=== PATIENT | male | born 1945 | race African-American/Black ===

== ENCOUNTER 2017-03-05 20:06 | Inpatient (IN) | payer MEDICARE, OTHER ==
[2017-03-05] MEDS: ALBUTEROL 0.083% (NEB) 2.5 MG/3 ML AMP HHN (20:43)
[2017-03-05] MEDS: IPRATROPIUM (NEB) 0.5 MG/2.5 ML AMP HHN (20:43)
[2017-03-05 21:19] LABS: ADD MAN DIFF? NO
[2017-03-05 21:21] LABS: WHITE BLOOD COUNT 7.5 10^3/ul (4.8-10.8)
[2017-03-05 21:21] LABS: BASOPHILS % 0.5 % (0.0-2.0); EOSINOPHILS # 0.6 10^3/ul (0.0-0.5); EOSINOPHILS % 8.3 % (0.0-7.0); HEMATOCRIT 47.3 % (42.0-52.0); HEMOGLOBIN 14.5 g/dl (14.0-18.0); LYMPHOCYTES # 1.8 10^3/ul (0.8-2.9); LYMPHOCYTES % 23.5 % (15.0-51.0); MEAN CORPUSCULAR HEMOGLOBIN 28.6 pg (29.0-33.0); MEAN CORPUSCULAR HGB CONC 30.7 g/dl (32.0-37.0); MEAN CORPUSCULAR VOLUME 93.3 fl (82.0-101.0); MEAN PLATELET VOLUME 11.2 fl (7.4-10.4); MONOCYTE # 0.6 10^3/ul (0.3-0.9); MONOCYTES % 7.7 % (0.0-11.0); NEUTROPHIL # 4.5 10^3/ul (1.6-7.5); NEUTROPHILS % 59.6 % (39.0-77.0); PLATELET COUNT 182 10^3/UL (140-415); RED BLOOD COUNT 5.07 10^6/ul (4.70-6.10); RED CELL DISTRIBUTION WIDTH 14.2 % (11.5-14.5)
[2017-03-05 21:41] LABS: INR 1.05; PROTIME 13.8 Sec (11.9-14.9); PT RATIO 1.1
[2017-03-05 21:42] LABS: PARTIAL THROMBOPLASTIN TIME 28.1 Sec (25.0-35.0)
[2017-03-05 21:53] LABS: ALANINE AMINOTRANSFERASE 26 IU/L (13-69); ALBUMIN 3.2 g/dl (3.3-4.9); ALBUMIN/GLOBULIN RATIO 0.86; ALKALINE PHOSPHATASE 121 IU/L (42-121); ANION GAP 12 (8-16); ASPARTATE AMINO TRANSFERASE 24 IU/L (15-46); BILIRUBIN,INDIRECT 0.2 mg/dl (0-1.1); BILIRUBIN,TOTAL 0.2 mg/dl (0.2-1.3); BLOOD UREA NITROGEN 16 mg/dl (7-20); CALCIUM 7.8 mg/dl (8.4-10.2); CARBON DIOXIDE 31 mmol/L (21-31); CHLORIDE 107 mmol/L (97-110); CREATININE 0.79 mg/dl (0.61-1.24); GLUCOSE 75 mg/dl (70-220); POTASSIUM 3.8 mmol/L (3.5-5.1); SODIUM 146 mmol/L (135-144); TOTAL PROTEIN 6.9 g/dl (6.1-8.1)
[2017-03-05 21:53] LABS: LACTIC ACID 1.2 mmol/L (0.5-2.0)
[2017-03-05 22:07] LABS: TROPONIN-I < 0.012 ng/ml (0.00-0.12)
[2017-03-05] MEDS ORDERED: ONDANSETRON 4 MG INJ IV (22:30)
[2017-03-05] MEDS ORDERED: ACETAMINOPHEN 325 MG TAB PO (22:30)
[2017-03-05 22:50] LABS: B-TYPE NATRIURETIC PEPTIDE 178 PG/ML (0-125)
[2017-03-05 22:54] LABS: AADO2 Arterial 119.6 mmHg (7.0-24.0); Allen Test ACCEPTAB; Arterial Blood Gas Oxygen Sat 92.1 mmHG (95.0-100.0); Arterial COHb 0.3 % (0.0-3.0); Arterial Fraction of Oxyhgb 91.5 % (93.0-99.0); Arterial HCO3 30.2 mmol/L (22.0-26.0); Arterial MetHb 0.3 % (0.0-1.5); Arterial Total Hemglobin 15.9 g/dl (12.0-18.0); Arterial pCO2 46.1 mmhg (35-45); MODE NASAL CANNULA; Site Right Radial
[2017-03-05] MEDS: CEFEPIME 2GM/50 ML (PMX) 50 ML IVPB (23:03)
[2017-03-05] MEDS: VANCOMYCIN 1 GM (PMX) 250 ML IVPB (23:04)
[2017-03-06] MEDS ORDERED: LORAZEPAM 2 MG INJ IV
[2017-03-06] MEDS ORDERED: ONDANSETRON 4 MG INJ IV
[2017-03-06] MEDS ORDERED: ACETAMINOPHEN 650 MG SUPP PR
[2017-03-06] MEDS ORDERED: NACL 0.9% 3 ML SYG IV
[2017-03-06] MEDS: SOD CHLORIDE 0.9% 100 ML (00:37)
[2017-03-06] MEDS: IOHEXOL 300MG/ML 150 ML BTL (00:37)
[2017-03-06] MEDS: SOD CHLORIDE 0.9% 1,000 ML IV (01:41)
[2017-03-06] MEDS: ENOXAPARIN 100 MG/ML SYG SC (02:18)
[2017-03-06 02:22] LABS: LACTIC ACID 2.1 mmol/L (0.5-2.0)
[2017-03-06 02:37] LABS: LACTIC ACID 1.2 mmol/L (0.5-2.0)
[2017-03-06] MEDS ORDERED: DEXTROSE 5% 1,000 ML IV (08:00)
[2017-03-06] MEDS ORDERED: FUROSEMIDE 20 MG INJ IV (08:30)
[2017-03-06] MEDS ORDERED: VANCOMYCIN IV PER PHARMACY XX (09:00)
[2017-03-06] MEDS ORDERED: MULTIVITAMINS 30 ML CUP GTB (09:00)
[2017-03-06] MEDS ORDERED: ATROPINE 1% 3.5 GM OPH OINT BOTH EYES (09:00)
[2017-03-06] MEDS ORDERED: MAGNESIUM HYDROXIDE 30ML CUP GTB (09:00)
[2017-03-06] MEDS ORDERED: ALBUMIN HUMAN 25% 100 ML IV (09:00)
[2017-03-06] MEDS ORDERED: LACTOBACILLUS ACIDOPHILUS 100 MG GTB (09:00)
[2017-03-06] MEDS ORDERED: ALBUTEROL/IPRATROPIUM (NEB) 3 ML AMP HHN (09:00)
[2017-03-06] MEDS ORDERED: MINERAL OIL 133 ML ENEMA PR (09:00)
[2017-03-06 09:11] LABS: ADD MAN DIFF? NO
[2017-03-06 09:15] LABS: BASOPHIL # 0.1 10^3/ul (0.0-0.1); BASOPHILS % 0.7 % (0.0-2.0); EOSINOPHILS # 0.5 10^3/ul (0.0-0.5); EOSINOPHILS % 7.4 % (0.0-7.0); HEMATOCRIT 44.7 % (42.0-52.0); HEMOGLOBIN 13.9 g/dl (14.0-18.0); LYMPHOCYTES # 1.6 10^3/ul (0.8-2.9); LYMPHOCYTES % 22.9 % (15.0-51.0); MEAN CORPUSCULAR HEMOGLOBIN 28.8 pg (29.0-33.0); MEAN CORPUSCULAR HGB CONC 31.1 g/dl (32.0-37.0); MEAN CORPUSCULAR VOLUME 92.7 fl (82.0-101.0); MONOCYTE # 0.4 10^3/ul (0.3-0.9); MONOCYTES % 6.4 % (0.0-11.0); NEUTROPHIL # 4.2 10^3/ul (1.6-7.5); NEUTROPHILS % 62.3 % (39.0-77.0); PLATELET COUNT 198 10^3/UL (140-415); RED BLOOD COUNT 4.82 10^6/ul (4.70-6.10); RED CELL DISTRIBUTION WIDTH 14.2 % (11.5-14.5)
[2017-03-06 09:15] LABS: WHITE BLOOD COUNT 6.8 10^3/ul (4.8-10.8)
[2017-03-06 09:40] LABS: CREATINE KINASE 88 IU/L (23-200)
[2017-03-06 09:44] LABS: ADD UMIC YES; UR ASCORBIC ACID 40 mg/dL (NEGATIVE); UR BACTERIA FEW /HPF (NONE SEEN); UR BILIRUBIN (Dip) NEGATIVE (NEGATIVE); UR BLOOD (Dip) NEGATIVE (NEGATIVE); UR CLARITY CLOUDY (CLEAR); UR COLOR AMBER (YELLOW); UR GLUCOSE (Dip) NEGATIVE (NEGATIVE); UR KETONES (Dip) TRACE mg/dL (NEGATIVE); UR LEUKOCYTE ESTERASE (Dip) 3+ Leu/ul (NEGATIVE); UR MUCUS MANY /HPF (NONE SEEN); UR NITRITE (Dip) NEGATIVE (NEGATIVE); UR NONSQUAMOUS EPITHELIAL CELL 1 /HPF (NONE SEEN); UR RBC 101 /HPF (0-5); UR SPECIFIC GRAVITY (Dip) > 1.060 (1.003-1.030); UR TOTAL PROTEIN (Dip) 1+ mg/dl (NEGATIVE); UR UROBILINOGEN (Dip) NEGATIVE (NEGATIVE); UR WBC > 182 /HPF (0-5)
[2017-03-06 09:53] LABS: CK INDEX 0.5
[2017-03-06] MEDS ORDERED: VANCOMYCIN 1.25 GM in SODIUM CHLORIDE 0.45 % 250 ML IVPB (10:00)
[2017-03-06 10:09] LABS: CK-MB 0.47 ng/ml (0.0-2.4); TROPONIN-I < 0.012 ng/ml (0.00-0.12)
[2017-03-06 10:14] LABS: AADO2 Arterial 84.7 mmHg (7.0-24.0); Allen Test ACCEPTAB; Arterial Base Excess 4.3 mmol/L (-3.0-3); Arterial Blood Gas Oxygen Sat 95.2 mmHG (95.0-100.0); Arterial COHb 0.4 % (0.0-3.0); Arterial Fraction of Oxyhgb 94.6 % (93.0-99.0); Arterial HCO3 29.5 mmol/L (22.0-26.0); Arterial MetHb 0.2 % (0.0-1.5); Arterial Total Hemglobin 14.8 g/dl (12.0-18.0); MODE NASAL CANNULA; Site Right Radial
[2017-03-06 10:21] LABS: ALANINE AMINOTRANSFERASE 26 IU/L (13-69); ALBUMIN 3.3 g/dl (3.3-4.9); ALBUMIN/GLOBULIN RATIO 0.89; ALKALINE PHOSPHATASE 129 IU/L (42-121); ANION GAP 13 (8-16); ASPARTATE AMINO TRANSFERASE 27 IU/L (15-46); BILIRUBIN,INDIRECT 0.6 mg/dl (0-1.1); BILIRUBIN,TOTAL 0.6 mg/dl (0.2-1.3); BLOOD UREA NITROGEN 16 mg/dl (7-20); CALCIUM 8.6 mg/dl (8.4-10.2); CARBON DIOXIDE 28 mmol/L (21-31); CHLORIDE 108 mmol/L (97-110); CREATININE 0.79 mg/dl (0.61-1.24); GLUCOSE 88 mg/dl (70-220); MAGNESIUM 1.9 mg/dl (1.7-2.5); POTASSIUM 4.2 mmol/L (3.5-5.1); SODIUM 145 mmol/L (135-144)
[2017-03-06 10:28] LABS: HEMOGLOBIN A1C 5.6 % (0-5.9)
[2017-03-06] MEDS: PIPER-TAZO 3.375 GM IV (PMX) 100 ML IVPB ×3 (10:35→21:23)
[2017-03-06] MEDS: BISACODYL 10 MG SUPP PR (10:53)
[2017-03-06] MEDS: ATROPINE 1% 3.5 GM OPH OINT BOTH EYES (13:33)
[2017-03-06] MEDS: MONTELUKAST 10 MG TAB GTB (21:22)
[2017-03-07] MEDS: PIPER-TAZO 3.375 GM IV (PMX) 100 ML IVPB ×3 (00:29→12:11)
[2017-03-07 07:40] LABS: ADD MAN DIFF? NO
[2017-03-07 07:48] LABS: BASOPHILS % 0.7 % (0.0-2.0); EOSINOPHILS # 0.4 10^3/ul (0.0-0.5); EOSINOPHILS % 7.5 % (0.0-7.0); HEMATOCRIT 41.2 % (42.0-52.0); HEMOGLOBIN 12.8 g/dl (14.0-18.0); MEAN CORPUSCULAR HEMOGLOBIN 28.9 pg (29.0-33.0); MEAN CORPUSCULAR HGB CONC 31.1 g/dl (32.0-37.0); MEAN PLATELET VOLUME 10.6 fl (7.4-10.4); MONOCYTE # 0.5 10^3/ul (0.3-0.9); MONOCYTES % 8.8 % (0.0-11.0); NEUTROPHIL # 3.7 10^3/ul (1.6-7.5); NEUTROPHILS % 65.8 % (39.0-77.0); PLATELET COUNT 194 10^3/UL (140-415); RED BLOOD COUNT 4.43 10^6/ul (4.70-6.10); RED CELL DISTRIBUTION WIDTH 14.1 % (11.5-14.5)
[2017-03-07 07:48] LABS: WHITE BLOOD COUNT 5.6 10^3/ul (4.8-10.8)
[2017-03-07 08:09] LABS: ALANINE AMINOTRANSFERASE 26 IU/L (13-69); ALBUMIN 3.2 g/dl (3.3-4.9); ALBUMIN/GLOBULIN RATIO 0.88; ALKALINE PHOSPHATASE 112 IU/L (42-121); ANION GAP 11 (8-16); ASPARTATE AMINO TRANSFERASE 21 IU/L (15-46); BILIRUBIN,INDIRECT 0.8 mg/dl (0-1.1); BILIRUBIN,TOTAL 0.8 mg/dl (0.2-1.3); BLOOD UREA NITROGEN 16 mg/dl (7-20); CALCIUM 8.3 mg/dl (8.4-10.2); CARBON DIOXIDE 30 mmol/L (21-31); CHLORIDE 106 mmol/L (97-110); CREATININE 0.88 mg/dl (0.61-1.24); GLUCOSE 126 mg/dl (70-220); MAGNESIUM 1.9 mg/dl (1.7-2.5); POTASSIUM 3.9 mmol/L (3.5-5.1); SODIUM 143 mmol/L (135-144); TOTAL PROTEIN 6.8 g/dl (6.1-8.1)
[2017-03-07] MEDS: ATROPINE 1% 3.5 GM OPH OINT BOTH EYES (09:00)
[2017-03-07] MEDS: BISACODYL 10 MG SUPP PR (09:00)
== END 2017-03-07 14:40 | DRG 189 ==
LOC: E/R 20:06 → MS4 22:23
DX: J96.01 Acute respiratory failure with hypoxia (principal); J18.9 Pneumonia, unspecified organism; E87.0 Hyperosmolality and hypernatremia; I11.0 Hypertensive heart disease with heart failure; I50.42 Chronic combined systolic (congestive) and diastolic (congestive) heart failure; J44.0 Chronic obstructive pulmonary disease with (acute) lower respiratory infection; R13.10 Dysphagia, unspecified; F03.90 Unspecified dementia, unspecified severity, without behavioral disturbance, psychotic disturbance, mood disturbance, and anxiety; J43.1 Panlobular emphysema; Z93.1 Gastrostomy status; Z87.891 Personal history of nicotine dependence
CPT/HCPCS: 36415; 36600; 71045; 71275; 80053; 81001; 82550; 82553; 82803; 83036; 83605; 83735; 83880; 84443; 84484; 85025; 85378; 85610; 85730; 87040; 87086; 87400; 93005; 93306; 93970; 94664; 96374; 96375; 99285-25